=== PATIENT | female | born 1985 | race Caucasian/White ===

== ENCOUNTER → 2018-03-02 07:42 | Outpatient (CLI) | payer OTHER, SELFPAY ==
--- NOTE | 2018-03-02 | DI.US.S_ITS ---
PROCEDURE: US OB <= 14 WEEKS FETUS INDICATIONS: SIZE AND DATES OUTSIDE/PRIOR DATING DATA: Last menstrual period (LMP): 12/22/17. LMP-based estimated date of delivery (ANNA): 09/28/18 . First dating scan (date and location): 03/02/18 Estimated date of delivery (ANNA) from first dating scan: 10/05/17 . TECHNIQUE: Real-time scanning was performed of the fetus and maternal pelvic organs, with image documentation. Endovaginal scanning was also performed to better visualize the fetus and maternal ovaries. COMPARISON: None. FINDINGS: Embryo: Single live intrauterine is present with heart rate of 173 beats per minutes. [place] rump length measures 2.3 cm corresonding to 9 weeks 0 days. Therer is a 13 x 4 mm x 10 mm fluid collection adjacent to the gestational sac. Measurement variability in dating: +/- 4 weeks by LMP, +/- 7 days by mean sac diameter (use before 6 weeks gestation if crown-rump length not able to be measured), +/- 5 days by crown-rump length (up to 8 weeks 6 days gestation), +/- 7 days by crown-rump length (up to 13 weeks 6 days gestation). Maternal organs: Ovaries are unremarkable. Limited images through the kidneys demonstrate no hydronephrosis. IMPRESSION: 1. Single live intrauterine with ultrasound gestational age of 9 weeks 0 days. Ultrasound ANNA is 10/05/17. Small subchorionic hemorrhage is noted. 2. Followup imaging at 20-22 weeks for dates and anatomy. Dictated by: Aziza Leo M.D. on 03/02/2018 at 11:24 Approved by: Aziza Leo M.D. on 03/02/2018 at 12:13
== END ==
PROVIDERS: Family Provider Family Medicine; PCP Family Medicine; Visit Provider Family Medicine
DX: Z34.91 Encounter for supervision of normal pregnancy, unspecified, first trimester (principal); Z3A.09 9 weeks gestation of pregnancy
CPT/HCPCS: 76801; 76817

== ENCOUNTER → 2018-05-12 08:43 | Outpatient (CLI) | payer OTHER, SELFPAY ==
--- NOTE | 2018-05-12 | DI.US.S_ITS ---
PROCEDURE: US OB >= 14 WEEKS FETUS INDICATIONS: ANATOMY SCAN OUTSIDE/PRIOR DATING DATA: Last menstrual period (LMP): 12/22/17. LMP-based estimated date of delivery (ANNA): 09/28/18 . First dating scan (date and location): 03/02/18 Estimated date of delivery (ANNA) from first dating scan: 10/05/18. TECHNIQUE: Real-time scanning was performed of the fetus, with image documentation and biometric measurements. Endovaginal scanning: No COMPARISON: None. FINDINGS: General: A single living intrauterine gestation is present. Presentation: Breech. Placenta: Placental position is posterior, without previa. Amniotic fluid index: 14.9 cm, normal range is 5-24 cm. heart rate: 143 beats per minute. Maternal cervical canal: 3.1 cm long. Normal lower limit is 2.5 cm. biometrics: Biparietal diameter: 18 weeks 4 days Head circumference: 19 weeks 1 day Abdominal circumference: 19 weeks 3 days Femur length: 19 weeks 6 days Estimated gestational age from initial scan: 19 weeks 1 day Composite gestational age from present scan: 19 weeks 2 days Estimated weight and percentile: 298 g; 69 percentile Measurement variability for biometric dating: +/- 7 days from 14 weeks to 15 weeks 6 days gestation, +/- 10 days from 16 weeks to 21 weeks 6 days gestation, +/- 2 weeks from 22 weeks to 27 weeks 6 days gestation, +/- 3 weeks for 28 weeks gestation or later. weight reference: 4500 g or EFW >90/95% is considered macrosomia or large for gestational age. EFW <10% is small for gestational age. EFW 5% or less is considered intra-uterine growth restriction. Anatomic survey: Neuro: Ventricles are non-dilated at less than 10 mm. Cisterna magna is normal at 3-11 mm. Cerebellum is normal in size and morphology. Nuchal skin fold: Normal at less than 6 mm between 14-21 weeks gestational age. Face: Nose and lips, facial profile are normal. Spine: No evidence for spina bifida. Heart: 4-chambered heart is present, with normal ventricular outflow tracts. Diaphragm: Diaphragm is intact. Stomach: Left-sided stomach is present. Kidneys: No hydronephrosis. Normal is less than 5 mm in 2nd trimester, less than 7 mm in 3rd trimester. Cord: 3-vessel cord has orthotopic insertion. Bladder: Normal in size. Extremities: All 4 extremities identified. IMPRESSION: 1. Single living IUP redemonstrated and interval growth is normal. 2. anatomic survey. Dictated by: George LEI Interpreted: Marychuy Chakraborty MD on 05/12/2018 at 11:09 Approved by: Lenny Ortiz M.D. on 05/12/2018 at 14:05
== END ==
PROVIDERS: PCP Family Medicine; Visit Provider Family Medicine
DX: Z36.89 Encounter for other specified antenatal screening (principal); Z3A.19 19 weeks gestation of pregnancy
CPT/HCPCS: 76811

== ENCOUNTER → 2018-09-01 19:04 | Outpatient (REF) | payer OTHER, SELFPAY | LOC: LAB 19:04 | PROVIDERS: PCP Family Medicine; Visit Provider Family Medicine | DX: Z34.80 Encounter for supervision of other normal pregnancy, unspecified trimester (principal) | CPT/HCPCS: 87081 ==

== ENCOUNTER 2018-09-30 12:28 | Outpatient (CLI) | payer OTHER, SELFPAY | END 2018-09-30 13:25 | disposition home or self-care (01) | LOC: LABOR 12:53 → OB 10-01 10:50 | PROVIDERS: PCP Family Medicine; Visit Provider Obstetrics & Gynecology | DX: O47.1 False labor at or after 37 completed weeks of gestation (principal); Z3A.40 40 weeks gestation of pregnancy | CPT/HCPCS: 59025; G0378; G0379 ==

== ENCOUNTER 2018-10-04 18:07 | Inpatient (IN) | payer OTHER, SELFPAY ==
[2018-10-04] MEDS: miSOPROStol 25 MCG TABLET VAG (19:40)
[2018-10-04 19:59] LABS: Add Manual Diff / Slide Review NO; Basophils Absolute Auto 100 /uL (0-100); Eosinophils Absolute Auto 200 /uL (0-450); Hematocrit 33.2 % (36-46); Hemoglobin 11.2 g/dL (12.0-16.0); Lymphocytes Absolute Auto 1500 /uL (1100-4500); Lymphocytes Percent Auto 19.5 % (25-40); Mean Corpuscular HGB Conc 33.9 % (30-36); Mean Corpuscular Hemoglobin 30.6 PG (26-34); Mean Corpuscular Volume 90.3 fL (80-100); Monocytes Absolute Auto 500 /uL (0-900); Monocytes Percent Auto 6.8 % (3-14); Neutrophils Absolute Auto 5500 /uL (1500-7000); Neutrophils Percent Auto 70.7 % (50-75); Platelet Count 306 X10^3/uL (150-400); Red Blood Cell Count 3.67 X10^6/uL (4.0-5.2); Red Cell Distribution Width 13.7 % (11.6-14.8); White Blood Cell Count 7.8 X10^3/uL (4.5-11.0)
[2018-10-04] MEDS: ZOLPIDEM 5 MG TABLET 10 MG PO (23:42)
[2018-10-05] MEDS: LACTATED RINGERS 1,000 ML 125 ML IV ×2 (07:30→13:17)
[2018-10-05] MEDS: OXYTOCIN PREMIX 30 UNIT/500 ML PLAST..BAG IV (07:31)
--- NOTE | 2018-10-05 08:22 | PM.OBPNLAB ---
Date/Time Date Patient Seen: 10/05/18 Time Patient Seen: 08:22 Pain Control Pain control: tolerating well Pelvic Exam Dilation (cm): 2 Effacement (%): 60 station: -1 Amniotic membrane status: Intact Contractions Contractions on admission: irregular Monitor mode: External Pitocin rate (mU/min): 2 Contraction frequency (min): 4 Contraction duration (min): 30 Contraction pattern: Irregular Contraction phase: Resting Contraction intensity: Mild Status status: Category l Heart Rate Baseline: 110 Monitor Accelerations: Present Monitor Decelerations: Absent Monitor Variability: Moderate Assessment and Plan Assessment: induction ongoing Plan: continuous present management Comments: Start pitocin AROM when able GBS negative Rh negative s/p Rhogam epidural when uncomfortable
[2018-10-05] MEDS: LACTATED RINGERS 1,000 ML 999 ML IV (12:15)
--- NOTE | 2018-10-05 16:40 | PM.OBPRVD ---
Events: Labor Induction Delivery date: 10/05/18 Intrapartal events: None Cervical ripening method: per misoprostal protocol Induction method: per pitocin protocol Delivery augmentation: rupture of membranes Delivery monitor: external FHT Route of delivery: L&D Laceration Description: Periurethral - 1st Degree Delivery repair: chromic Estimated blood loss (mL): 300 Anesthesia type: Epidural Complications: none Narrative: ID: 33-year-old G2 to P 1 at 40 and 6 7 weeks estimated gestational age based on LMP and 9 week ultrasound who is brought to Labor and delivery for induction of labor. She was given 1 Cytotec the night before delivery and was found a role in the morning and Pitocin was begun. Her he was uncomplicated. She took a baby aspirin throughout due to preeclampsia with her 1st . She did have influenza and was treated with Tamiflu as well as other viral illnesses. Rh negative status post RhoGAM. Status post Tdap and flu shot. GBS negative Stage I lasted 3 hours and 36 minutes Patient was found to be favorable on the morning of delivery and Pitocin was begun at 7:45 a.m.. Her maximum Pitocin was 18 milliunits. AROM was performed at 10:16 a.m. and there was a mild amount of clear amniotic fluid with some blood and clots. This was 4 hours and 30 minutes prior delivery. She then was preparing for an epidural and had a large gush of fluid at 11:30 a.m.. Epidural was completed at 11:40 a.m.. She had hypotension and was treated with ephedrine. Baby tolerated the hypotension well without any problem. External monitor was used throughout stage I showing category 1 tracing. Baseline was 100-120 with moderate variability and accelerations and occasional variable deceleration just to 90. External tocometer was used throughout stage I. Patient had a lot urine debility after the Cytotec but then had regular contraction pattern once Pitocin was started. Patient was noted to be complete at 3:06 p.m. and began pushing at 3:30 p.m. Stage II lasted 13 minutes External tocometer and heart monitor were used throughout this stage. Baby was found to be at +1 station with Monica put anterior and mom began pushing effectively. Category 1 tracing throughout this stage. Mom made good effort and quickly push the baby down. It is very tight fit on the perineum but mom did great with letting baby sat there. Baby was in and right occiput anterior position. The head was delivered and felt for core there was a loose nuchal cord which was reduced on the perineum the anterior shoulder was delivered than the posterior shoulder without difficulty and baby was placed on mom's chest. Baby was vigorous at delivery. Weight is pending. After her 9 at 1 minute and 9 at 5 minutes. Stage III lasted 3 minutes Normal spontaneous vaginal delivery of a moderately calcified placenta with a near central cord insertion. There is a three-vessel cord. Intact placenta. Pitocin was run in after delivery of the placenta and estimated blood loss was 300 cc. Uterus firmed up. Cord blood was sent for cord analysis due to Rh negative mom. There was a small left periurethral laceration that was repaired with 3 0 chromic in a running fashion. There was a skid mary jo very superficial on the perineum which was closed with 3 0 chromic. At the time this dictation both mom and baby are doing well.
--- NOTE | 2018-10-05 16:55 | PM.OBHP.1 ---
OB HPI History of Present Condition Chief complaint: OBSERVATION Narrative: Lashonda Chao is a 33 year old female She 2 P1 at 40 and 6 7 weeks estimated gestational age based on an EDC of 09/29/2018 based on LMP and a 9 week ultrasound. Cell free DNA was normal XX. was uncomplicated. The patient began care early on and had a total of 14 visits. Patient gained approximately 40 lb. Blood pressures were excellent 100-128/58-74. No proteinuria. Serology was negative including hep C, HIV, hepatitis-B, urine culture. Patient was treated in 1st trimester with bacterial vaginosis. Syphilis was negative blood type O negative and she received RhoGAM June of 2018. She received her Tdap and her flu shot. Unfortunately she did develop influenza during the . Was treated with Tamiflu this was in mid third trimester. Glucose tolerance test was 80 group B beta strep is negative Pap was normal chlamydia and gonorrhea were negative hemoglobin was low normal and she was started on iron. Rubella immune. The testing showed normal XX chromosome. Twenty week ultrasound showed normal anatomy. Patient took a baby aspirin the entire and no elevated blood pressure. Past medical history: Sciatica Eczema attention deficit disorder Psoriasis Current medications vitamins Allergies no drug allergies Past surgical history: [place] teeth removal Family history father with Yzbgr-Ekjcqjbou-Upmqv syndrome, tachycardia: Mom with lupus Past OB history 06/18/2015 at 40 weeks gestation induction due to preeclampsia. Normal spontaneous vaginal delivery after 15 hours of labor with epidural viable male weighing 8 lb 3 oz. Evaluation Evaluation Laboratory results: Laboratory Tests 10/04/18 10/04/18 18:30 18:30 WBC 7.8 RBC 3.67 L Hgb 11.2 L Hct 33.2 L MCV 90.3 MCH 30.6 MCHC 33.9 RDW 13.7 Plt Count 306 Neut % (Auto) 70.7 Lymph % (Auto) 19.5 L [place] % (Auto) 6.8 Eos % (Auto) 2.0 Baso % (Auto) 1.0 Neut # (Auto) 5500 Lymph # (Auto) 1500 [place] # (Auto) 500 Eos # (Auto) 200 Baso # (Auto) 100 Blood Type O Negative Antibody Screen Negative PFSH Social History Smoking Status: Never smoker Social History Smoking Status: Never smoker Meds Home Medications Medication Instructions Recorded Confirmed Type valacyclovir 500 mg PO DAILY #0 09/29/17 10/05/18 History Allergies Allergy/AdvReac Type Severity Reaction Status Date / Time No Known Drug Allergies Allergy Verified 10/04/18 19:41 Review of Systems Review of Systems Baby has been very active. Patient has been having irregular uterine contractions. No change in discharge. No headaches. No abdominal pain. No swelling. All systems reviewed & are unremarkable except as noted in HPI and below Exam Narrative Exam Narrative: Alert and oriented x3, vital signs stable. Excellent blood pressure. HEENT: Unremarkable Neck: Supple without masses Chest: Clear to auscultation without wheezes rhonchi or crackles Cor: Regular rate and rhythm without murmur Abdomen: Positive bowel sounds, soft, nontender, nondistended, vertex presentation, gravid, estimated weight is 7-8 lb. Extremities: No edema, DTRs 2+ bilaterally Cervical exam 2-3 cm, 60% effaced, -2 station, mid position, soft heart tracing 110-120 baseline with moderate variability with accelerations and no decelerations. He during contractions intermittent. Objective Labs Result Diagrams: 10/04/18 18:30 Labs: Laboratory Results - last 24 hr 10/04/18 10/04/18 18:30 18:30 WBC 7.8 RBC 3.67 L Hgb 11.2 L Hct 33.2 L MCV 90.3 MCH 30.6 MCHC 33.9 RDW 13.7 Plt Count 306 Neut % (Auto) 70.7 Lymph % (Auto) 19.5 L [place] % (Auto) 6.8 Eos % (Auto) 2.0 Baso % (Auto) 1.0 Neut # (Auto) 5500 Lymph # (Auto) 1500 [place] # (Auto) 500 Eos # (Auto) 200 Baso # (Auto) 100 Blood Type O Negative Antibody Screen Negative Assessment and Plan Assessment and Plan Assessment and Plan narrative: 33-year-old at 40 and 6 7 weeks estimated gestational age here for induction of labor. Ford score is conducive to induction. Pitocin has been done. I will come back and perform artificial rupture of membranes and a few hours. We will continue with external tocometer heart monitor. Category 1 tracing right now. GBS negative. Rh negative status post RhoGAM status post Tdap
--- NOTE | 2018-10-05 17:04 | P.HPOB_ITS ---
OB HPI History of Present Condition Chief complaint: OBSERVATION Narrative: Lashonda Chao is a 33 year old female She 2 P1 at 40 and 6 7 weeks estimated gestational age based on an EDC of 09/29/2018 based on LMP and a 9 week ultrasound. Cell free DNA was normal XX. was uncomplicated. The patient began care early on and had a total of 14 visits. Patient gained approximately 40 lb. Blood pressures were excellent 100-128/58-74. No proteinuria. Serology was negative including hep C , HIV, hepatitis-B, urine culture. Patient was treated in 1st trimester with bacterial vaginosis. Syphilis was negative blood type O negative and she received RhoGAM June of 2018. She received her Tdap and her flu shot. Unfortunately she did develop influenza during the . Was treated with Tamiflu this was in mid third trimester. Glucose tolerance test was 80 group B beta strep is negative Pap was normal chlamydia and gonorrhea were negative hemoglobin was low normal and she was started on iron. Rubella immune. The testing showed normal XX chromosome. Twenty week ultrasound showed normal anatomy. Patient took a baby aspirin the entire and no elevated blood pressure. Past medical history: Sciatica Eczema attention deficit disorder Psoriasis Current medications vitamins Allergies no drug allergies Past surgical history: [place] teeth removal Family history father with Pccnr-Adjpzdhut-Vfiye syndrome, tachycardia: Mom with lupus Past OB history 06/18/2015 at 40 weeks gestation induction due to preeclampsia. Normal spontaneous vaginal delivery after 15 hours of labor with epidural viable male weighing 8 lb 3 oz. Evaluation Evaluation Laboratory results: Laboratory Tests 10/04/18 10/04/18 18:30 18:30 WBC 7.8 RBC 3.67 L Hgb 11.2 L Hct 33.2 L MCV 90.3 MCH 30.6 MCHC 33.9 RDW 13.7 Plt Count 306 Neut % (Auto) 70.7 Lymph % (Auto) 19.5 L [place] % (Auto) 6.8 Eos % (Auto) 2.0 Baso % (Auto) 1.0 Neut # (Auto) 5500 Lymph # (Auto) 1500 [place] # (Auto) 500 Eos # (Auto) 200 Baso # (Auto) 100 Blood Type O Negative Antibody Screen Negative PFSH Social History Smoking Status: Never smoker Social History Smoking Status: Never smoker Meds Home Medications Medication Instructions Recorded Confirmed Type valacyclovir 500 mg PO DAILY #0 09/29/17 10/05/18 History Allergies Allergy/AdvReac Type Severity Reaction Status Date / Time No Known Drug Allergies Allergy Verified 10/04/18 19:41 Review of Systems Review of Systems Baby has been very active. Patient has been having irregular uterine contractio ns. No change in discharge. No headaches. No abdominal pain. No swelling. All systems reviewed & are unremarkable except as noted in HPI and below Exam Narrative Exam Narrative: Alert and oriented x3, vital signs stable. Excellent blood pressure. HEENT: Unremarkable Neck: Supple without masses Chest: Clear to auscultation without wheezes rhonchi or crackles Cor: Regular rate and rhythm without murmur Abdomen: Positive bowel sounds, soft, nontender, nondistended, vertex presentation, gravid, estimated weight is 7-8 lb. Extremities: No edema, DTRs 2+ bilaterally Cervical exam 2-3 cm, 60% effaced, -2 station, mid position, soft heart tracing 110-120 baseline with moderate variability with accelerations and no decelerations. He during contractions intermittent. Objective Labs Result Diagrams: 10/04/18 18:30 Labs: Laboratory Results - last 24 hr 10/04/18 10/04/18 18:30 18:30 WBC 7.8 RBC 3.67 L Hgb 11.2 L Hct 33.2 L MCV 90.3 MCH 30.6 MCHC 33.9 RDW 13.7 Plt Count 306 Neut % (Auto) 70.7 Lymph % (Auto) 19.5 L [place] % (Auto) 6.8 Eos % (Auto) 2.0 Baso % (Auto) 1.0 Neut # (Auto) 5500 Lymph # (Auto) 1500 [place] # (Auto) 500 Eos # (Auto) 200 Baso # (Auto) 100 Blood Type O Negative Antibody Screen Negative Assessment and Plan Assessment and Plan Assessment and Plan narrative: 33-year-old at 40 and 6 7 weeks estimated gestational age here for induction of labor. Ford score is conducive to induction. Pitocin has been done. I will come back and perform artificial rupture of membranes and a few hours. We will continue with external tocometer heart monitor. Category 1 tracing right now. GBS negative. Rh negative status post RhoGAM status post Tdap
[2018-10-05 17:34] VITALS: BP 123/75
[2018-10-05] MEDS: IBUPROFEN 600 MG TABLET PO (20:13)
[2018-10-06 06:52] LABS: Add Manual Diff / Slide Review NO; Basophils Absolute Auto 0 /uL (0-100); Basophils Percent Auto 0.5 % (0-2); Eosinophils Absolute Auto 200 /uL (0-450); Eosinophils Percent Auto 1.7 % (2-4); Hematocrit 28.1 % (36-46); Hemoglobin 9.3 g/dL (12.0-16.0); Lymphocytes Absolute Auto 1800 /uL (1100-4500); Lymphocytes Percent Auto 19.8 % (25-40); Mean Corpuscular HGB Conc 33.2 % (30-36); Mean Corpuscular Hemoglobin 30.1 PG (26-34); Mean Corpuscular Volume 90.6 fL (80-100); Monocytes Absolute Auto 800 /uL (0-900); Monocytes Percent Auto 8.8 % (3-14); Neutrophils Absolute Auto 6200 /uL (1500-7000); Neutrophils Percent Auto 69.2 % (50-75); Platelet Count 207 X10^3/uL (150-400); Red Cell Distribution Width 13.9 % (11.6-14.8); White Blood Cell Count 8.9 X10^3/uL (4.5-11.0)
[2018-10-06] MEDS: IBUPROFEN 600 MG TABLET PO (07:37)
--- NOTE | 2018-10-06 13:30 | P.DS_ITS ---
Discharge Providers Date of admission: 10/04/18 18:07 Discharge Date: 10/06/18 Primary care physician: Sobeida Griffin MD Consults: 10/05/18 00:01 Consult to Anesthesiology Urgent Comment: Consulting Provider: Anesthesiologist Reason for consultation: labor Has provider been notified: Yes 10/05/18 16:29 Consult to Prekindergarten Teacher Routine Comment: Discharge provider: Sobeida Griffin MD Summary Date Patient Seen: 10/06/18 Time Patient Seen: 08:33 Hospital Course: Patient was admitted for cervical ripening and induction of labor. Patient had a normal labor with the active phase of 4-1/2 hours and normal spontaneous vaginal delivery. Patient was hospital overnight had no complications but did fall to the ground because her left leg was still slightly numb and would hold her weight when she was moving in the room. She had no injuries. No complaints this morning. Normal lochia. Pain well controlled with Motrin. Breast-feeding going well. Patient was discharged home day 1. In stable condition to follow up with me in 2 weeks. Routine discharge instructions regarding feeding, infection, bleeding. Peripartum Data Delivery Method: Natural Vaginal Laceration description: Periurethral - 1st Degree complications: none Status at Discharge Cognitive/behavioral status at discharge: at baseline, oriented Functional status at discharge: independent ambulation Overall status at discharge: patient is back to baseline Time Spent with Patient Total time spent providing and/or coordinating discharge services: 30 minutes Greater than 30 minutes Objective Labs Result Diagrams: 10/06/18 06:30 Labs: Laboratory Results - last 24 hr 10/06/18 10/06/18 06:30 06:30 WBC 8.9 RBC 3.10 L Hgb 9.3 L Hct 28.1 L MCV 90.6 MCH 30.1 MCHC 33.2 RDW 13.9 Plt Count 207 Neut % (Auto) 69.2 Lymph % (Auto) 19.8 L [place] % (Auto) 8.8 Eos % (Auto) 1.7 L Baso % (Auto) 0.5 Neut # (Auto) 6200 Lymph # (Auto) 1800 [place] # (Auto) 800 Eos # (Auto) 200 Baso # (Auto) 0 Maternal Bleed Negative Exam Narrative Exam Narrative: Alert and orient x3 in no apparent distress, vital signs stable HEENT: Unremarkable Neck: No masses Chest: Clear to auscultation without wheezes rhonchi or crackles Cor: Regular rate and rhythm without any murmur Abdomen: Benign, uterus firm and nontender and below the umbilicus Extremities: Trace edema. DTRs 2+ bilaterally patellar Discharge Plan Discharge Plan Patient Disposition: Home Discharge Med Rec/Prescriptions Prescriptions: New ibuprofen 600 mg Tablet 600 mg PO Q6HR PRN (Reason: Pain, Mild (1-3)) Qty: 60 RF: 0 Discontinued valacyclovir 500 mg tablet 500 mg PO DAILY Qty: 0 RF: 0 Follow up/Referrals: Sobeida Griffin MD [Primary Care Provider] - 10/19/18 10:15 am Discharge Data Primary Care Provider: Sobeida Griffin Attending Provider: Sobeida Griffin Admit Date/Time: 10/04/18 18:07
[2018-10-06] MEDS: RHO(D) IMMUNE GLOBULIN 1,500 UNIT SYRINGE 1500 UNIT IM (17:05)
[2018-10-06 17:07] VITALS: BP 121/61; PULSE 72; RESP 16; TEMP 36.2
== END 2018-10-06 17:40 | disposition home or self-care (01) | DRG 807 ==
PROVIDERS: Admitting Provider Family Medicine; PCP Family Medicine; Visit Provider Family Medicine
DX: O48.0 Post-term pregnancy (principal); Z37.0 Single live birth; O69.81X0 Labor and delivery complicated by cord around neck, without compression, not applicable or unspecified; O71.82 Other specified trauma to perineum and vulva; Z3A.40 40 weeks gestation of pregnancy
CPT/HCPCS: 01967; 36415; 59050; 59200; 85025; 85461; 86850; 86900; 86901; G0379; J2590; J2790; J3010

== ENCOUNTER → 2019-08-14 09:04 | Outpatient (CLI) | payer BC, SELFPAY | PROVIDERS: PCP Family Medicine; Visit Provider Physician Assistant | DX: J02.9 Acute pharyngitis, unspecified (principal) | CPT/HCPCS: 87070 ==

== ENCOUNTER → 2020-06-30 12:09 | Outpatient (CLI) | payer BC, SELFPAY ==
[2020-06-30] MEDS: COVID-19 VACC(MODERNA-1)/PF 100 MCG/0.5 ML VIAL IM (12:13)
== END ==
PROVIDERS: PCP Family Medicine; Visit Provider Internal Medicine
DX: Z23 Encounter for immunization (principal)
CPT/HCPCS: 0011A; 91301

== ENCOUNTER → 2020-07-28 12:14 | Outpatient (CLI) | payer BC, SELFPAY ==
[2020-07-28] MEDS: COVID-19 VACC #2, MRNA(MOD) 100 MCG/0.5 ML VIAL IM (12:19)
== END ==
PROVIDERS: PCP Family Medicine; Visit Provider Internal Medicine
DX: Z23 Encounter for immunization (principal)
CPT/HCPCS: 0012A; 91301

== ENCOUNTER → 2021-04-27 14:26 | Outpatient (CLI) | payer BC, SELFPAY ==
[2021-04-27] MEDS: COVID-19 VACC #3, MRNA(MOD) 50 MCG/0.25 ML VIAL IM (14:30)
== END ==
PROVIDERS: PCP Family Medicine; Visit Provider Internal Medicine
DX: Z23 Encounter for immunization (principal)
CPT/HCPCS: 0013A; 91301

== ENCOUNTER → 2022-06-28 10:53 | Outpatient (CLI) | payer BC, SELFPAY ==
--- NOTE | 2022-06-28 | DI.US.S_ITS ---
PROCEDURE: US PELVIC COMPLETE INDICATIONS: DUB TECHNIQUE: Real-time scanning was performed of the pelvic organs, with image documentation. Additional endovaginal scanning was necessary due to incomplete visualization of the adnexal and endometrial structures by transabdominal scanning. COMPARISON: None. FINDINGS: Uterus: Uterus is anteverted and normal in size at 8.4 x 3.8 x 6.1 cm. The myometrium is homogeneous. The endometrium measures 4.3 mm combined thickness. Ovaries: The right ovary measures 2.6 x 3.9 x 2.7 cm, with a calculated ovarian volume of 13.9 cc. The left ovary measures 3.8 x 2.1 x 2.4 cm, with a calculated ovarian volume of 10.0 cc. The ovaries have a normal sonographic appearance. Multiple small follicles are seen in both ovaries. No cine clip is included, but there appears to be nearly or slightly greater than 12 follicles in each ovary. No adnexal masses are seen. Other: No pathologic free abdominal or pelvic fluid. IMPRESSION: 1. Multiple small follicles are seen in both ovaries, which are nonspecific and may be at the upper limits of normal but can be seen in the setting of polycystic ovarian syndrome. Ovaries are borderline in size. Recommend clinical correlation. 2. Otherwise, no significant sonographic abnormality in the pelvis. We strive to produce accurate, complete, and clear reports of imaging services. To assist us in improving patient care, this report was composed using standard report templates and voice recognition software. Therefore, it may contain abnormal punctuation, insertions and/or omissions. Occasional wrong-word or sound-alike substitutions may occur. Though we review the report and make efforts to correct it, we do recommend that the report be read carefully in proper context to recognize any text inaccuracies. Approved by: Kevin Santiago M.D. on 06/28/2022 at 14:40
== END ==
PROVIDERS: Family Provider Family Medicine; PCP Family Medicine; Referring Provider Family Medicine; Visit Provider Family Medicine
DX: N92.0 Excessive and frequent menstruation with regular cycle (principal)
CPT/HCPCS: 76830; 76856

== ENCOUNTER → 2024-06-21 | Outpatient (CLI) | payer BC, SELFPAY ==
--- NOTE | 2024-06-21 14:55 | DI.MG.S_ITS ---
BILATERAL DIGITAL SCREENING MAMMOGRAM 3D/2D WITH CAD: 06/21/2024 CLINICAL: Routine screening. Baseline exam. No prior exams were available for comparison. The breasts are extremely dense, which lowers the sensitivity of mammography (category d />75% glandular tissue). Current study was also evaluated with a Computer Aided Detection (CAD) system. No significant masses, calcifications, or other findings are seen in either breast. IMPRESSION: NEGATIVE There is no mammographic evidence of malignancy. A 1 year screening mammogram is recommended. Based on Tyrer-Cuzick model (a risk assessment model), the patient's lifetime risk is 21.1% and her 10 year risk is 3.0%. If a patient has an elevated risk, a more comprehensive evaluation should be considered and/or a referral to a genetic counselor. The [place] [employer], [place] [employer], and NCCN Guidelines advise the consideration of Breast MRI as an adjunct to screening mammography in patients whose Lifetime risk to develop breast cancer is 20% or higher. This exam was interpreted at Station ID: [id number]. NOTE: For mammograms, a report in lay terms will be sent to the patient. Approximately 15% of breast malignancies will not be visualized mammographically. In the management of a palpable breast mass, a negative mammogram must not discourage biopsy of a clinically suspicious lesion. Electronically Signed By: Awais chacon/sandra:06/22/2024 14:22:12 letter sent: Normal Exam ACR BI-RADS Category 1: Negative
== END ==
LOC: MAMMO 14:55
PROVIDERS: Family Provider Family Medicine; PCP Family Medicine; Referring Provider Family Medicine; Visit Provider Family Medicine
DX: Z12.31 Encounter for screening mammogram for malignant neoplasm of breast (principal); R92.343 Mammographic extreme density, bilateral breasts
CPT/HCPCS: 77063; 77067

== ENCOUNTER → 2024-09-04 13:44 | Outpatient (CLI) | payer BC, SELFPAY | LOC: LAB 13:45 | PROVIDERS: Family Provider Family Medicine; PCP Family Medicine; Visit Provider Physician Assistant Surgical | DX: J02.9 Acute pharyngitis, unspecified (principal) | CPT/HCPCS: 87070 ==

== ENCOUNTER → 2025-01-05 10:22 | Outpatient (CLI) | payer BC, SELFPAY ==
--- NOTE | 2025-01-05 10:23 | DI.US.S_ITS ---
PROCEDURE: US PELVIC COMPLETE INDICATIONS: ABNORMAL VAGINAL BLEEDING TECHNIQUE: Real-time scanning was performed of the pelvic organs, with image documentation. Additional endovaginal scanning was necessary due to incomplete visualization of the adnexal and endometrial structures by transabdominal scanning. COMPARISON: [facility], US, US PELVIC COMPLETE, 06/28/2022, 11:01. FINDINGS: Uterus: Uterus is anteverted and normal in size at 8.2 x 5.6 x 4.3 cm. The myometrium is homogeneous. The endometrium measures 6 mm combined thickness. No fibroids seen. Ovaries: The right ovary measures 4.6 x 2.6 x 2.4 cm, with a calculated ovarian volume of 15 cc. The left ovary measures 4 x 3 x 2.2 cm, with a calculated ovarian volume of 14 cc. The ovaries have a normal sonographic appearance. Greater than 12 follicles can be seen in each ovary. No adnexal masses are seen. Simple right ovarian anechoic cyst measuring 2.3 cm. Other: No pathologic free abdominal or pelvic fluid. IMPRESSION: 1. Endometrium measures 6 mm. 2. No fibroids seen. 3. Greater than 12 ovarian follicles bilaterally. Nonspecific but could be seen in the setting of PCOS. We strive to produce accurate, complete, and clear reports of imaging services. To assist us in improving patient care, this report was composed using standard report templates and voice recognition software. Therefore, it may contain abnormal punctuation, insertions and/or omissions. Occasional wrong-word or sound-alike substitutions may occur. Though we review the report and make efforts to correct it, we do recommend that the report be read carefully in proper context to recognize any text inaccuracies. Dictated by: Awais Ortega M.D. on 01/05/2025 at 16:14 Approved by: Awais Ortega M.D. on 01/05/2025 at 16:24
== END ==
LOC: US 10:22
PROVIDERS: Family Provider Family Medicine; PCP Family Medicine; Referring Provider Family Medicine; Visit Provider Family Medicine
DX: N93.9 Abnormal uterine and vaginal bleeding, unspecified (principal); N83.291 Other ovarian cyst, right side
CPT/HCPCS: 76830; 76856